=== PATIENT | female | born 1985 | race Caucasian/White ===

== ENCOUNTER 2022-10-26 14:54 | Emergency (ER) | payer BC, SELFPAY ==
[2022-10-26] VITALS (8 sets, daily range): BP systolic 133–154; BP diastolic 95–103; PULSE 101–140; RESP 20; TEMP 36.4; O2SAT 97–100; BMI 20.9
--- NOTE | 2022-10-26 15:28 | ED.GENADULT ---
HPI - General Adult General Time Seen by Provider: 15:28 Date Seen: 10/26/22 Chief complaint: Alcohol/Intoxication Stated complaint: Alcohol Related Problem Time Seen by Provider: 10/26/22 14:57 Source: patient Mode of arrival: ambulatory Limitations: no limitations History of Present Illness HPI narrative: Patient is a 37-year-old female has history of alcohol problem. She reports over the last couple of years since COVID started she has been drinking heavily 1-2 bottles of wine a day. She last drank about 3 in the morning last night. Does not feel she is under the effects of alcohol now but has been shaky, jittery, feels her pulse racing, feels nauseated. She has not had any significant withdrawal from prior time stopping drinking, she went to a last year and stop for a while and did not have this kind of effect after stopping. She has had no fever chills COVID symptoms. She is generally healthy other than her alcohol issue. She is on Adderall for ADHD and Prozac. She has no chest pain, shortness of breath. Related Data Home Medications Medication Instructions Recorded Confirmed dextroamphetamine-amphetamine 40 mg .ROUTE 10/26/22 fluoxetine 20 mg capsule (Prozac) 20 mg PO DAILY 10/26/22 10/26/22 Previous Rx's Medication Instructions Recorded lorazepam 0.5 mg tablet (Ativan) 0.5 mg PO TID PRN #10 tabs 10/26/22 Allergies Allergy/AdvReac Type Severity Reaction Status Date / Time No Known Drug Allergies Allergy Verified 10/26/22 15:10 Review of Systems Status of ROS: Reports: 10 or more systems reviewed and unremarkable except as noted in History and below PFSH PFSH Social History Smoking Status: Current every day smoker How often do you have a drink containing alcohol: 4 or more times a week How many standard drinks containing alcohol do you have on a typical day: 10 or more How often do you have six or more drinks on one occasion: Daily or almost daily AUDIT-C Alcohol total score: 12 Non-prescribed substance use: denies use Exam Narrative: Exam Narrative: Objective: The patient shows elevated pulse at 1:40 a.m. retested about 120 resp rate is normal blood pressure slightly elevated O2 sat 97% on room air HEENT is unremarkable patient is somewhat jittery patient is alert oriented very pleasant, she is scared. No scleral icterus Neck is supple Chest clear Heart rhythm regular heart murmur tachycardic Abdomen benign soft nontender Extremities are no edema neurologic nonfocal, good peripheral perfusion noted Const: Vital Signs, click to edit/add: Vital Signs - 24 hr 10/26/22 15:05 10/26/22 15:26 10/26/22 15:44 Temperature 97.6 F Pulse Rate 110 H Pulse Rate [Left P ulse Oximeter] 140 H Respiratory Rate 20 Blood Pressure Blood Pressure [Ri ght Upper Arm] 154/95 H Pulse Oximetry 97 100 100 Oxygen Delivery Me thod Room Air 10/26/22 16:00 10/26/22 16:01 10/26/22 16:02 Temperature Pulse Rate 101 H 101 H 102 H Pulse Rate [Left P ulse Oximeter] Respiratory Rate Blood Pressure 133/99 H Blood Pressure [Ri ght Upper Arm] Pulse Oximetry 100 100 100 Oxygen Delivery Me thod 10/26/22 16:30 10/26/22 16:32 Temperature Pulse Rate 103 H 101 H Pulse Rate [Left P ulse Oximeter] Respiratory Rate Blood Pressure 136/103 H Blood Pressure [Ri ght Upper Arm] Pulse Oximetry 100 100 Oxygen Delivery Me thod Course Vital Signs Vital signs: Initial Vital Signs Temperature 97.6 F 10/26/22 15:05 Temperature Source Temporal Artery Scan 10/26/22 15:05 Pulse Rate 140 H 10/26/22 15:05 Pulse Rhythm 10/26/22 15:05 Pulse Strength 3+ Normal 10/26/22 15:05 Respiratory Rate 20 10/26/22 15:05 Blood Pressure 154/95 H 10/26/22 15:05 Blood Pressure Mean 114 10/26/22 15:05 Blood Pressure Position Sitting 10/26/22 15:05 Pulse Oximetry 97 10/26/22 15:05 Oxygen Delivery Method 10/26/22 15:05 Vital Signs Temperature 97.6 F 10/26/22 15:05 Pulse Rate 140 H 10/26/22 15:05 Respiratory Rate 20 10/26/22 15:05 Blood Pressure 154/95 H 10/26/22 15:05 Pulse Oximetry 97 10/26/22 15:05 Oxygen Delivery Method 10/26/22 15:05 Temperature 97.6 F 10/26/22 15:05 Pulse Rate 101 H 10/26/22 16:32 Respiratory Rate 20 10/26/22 15:05 Blood Pressure 136/103 H 10/26/22 16:32 Pulse Oximetry 100 10/26/22 16:32 Oxygen Delivery Method 10/26/22 15:05 Medical Decision Making MDM Narrative Medical decision making narrative: Patient is a is a 37 year white female with history of alcohol abuse, likely alcoholism. Possibly mild withdrawal. Could also be an anxiety exacerbation from alcohol. At this point will give Ativan, IV fluid, check labs, check an EKG, social service consult for alcohol recommendation of treatment. Lab Data Labs: Lab Results 10/26/22 10/26/22 10/26/22 Range/Units 15:20 15:20 15:20 WBC 11.42 H (4.50-11.00) K/uL RBC 5.21 H (4.00-5.20) m/uL Hgb 15.8 (12.0-16.0) gm/dL Hct 46.1 (33.0-51.0) % MCV 89 (80-100) fL MCH 30 (26-34) pg MCHC 34 (32-36) gm/dL RDW Coeff of Tori 12.9 (11.5-15.5) % Plt Count 232 (140-440) K/uL Neut % (Auto) 74.9 H (42.0-72.0) % Lymph % (Auto) 19.6 L (20-44) % [place] % (Auto) 4.6 (0.0-11.0) % Eos % (Auto) 0.3 (0.0-7.0) % Baso % (Auto) 0.3 (0.0-3.0) % Neut # (Auto) 8.60 H (1.7-7.0) K/uL Lymph # (Auto) 2.20 (0.90-2.90) K/uL [place] # (Auto) 0.50 (0.00-0.90) K/UL Eos # (Auto) 0.00 (0.00-0.50) K/uL Baso # (Auto) 0.00 (0.00-0.30) K/uL Abs Immat Gran (auto) 0.00 (0.00-0.30) K/uL Imm/Tot Granulo (auto) 0.3 % Sodium 136 (135-149) mmol/L Potassium 3.5 L (3.6-5.1) mmol/L Chloride 100 (96-114) mmol/L Carbon Dioxide 28 (20-32) mmol/L BUN 15 (5-24) mg/dL Creatinine 0.5 (0.5-1.5) mg/dL Estimated Creat Clear 129.91 Estimated GFR 125 ml/min Glucose 89 (60-115) mg/dL Calcium 8.9 (8.4-10.6) mg/dL Total Bilirubin 0.9 (0.1-1.5) mg/dL Direct Bilirubin 0.1 (0.0-0.5) mg/dL AST 35 (12-35) U/L ALT 32 (4-35) U/L Alkaline Phosphatase 91 (40-150) U/L C-Reactive Protein < 0.5 L (0.5-1.0) mg/dL Total Protein 7.5 (6.0-8.3) g/dL Albumin 4.4 (3.3-5.0) g/dL Amylase 76 (18-89) U/L Lipase 128 (23-300) U/L HCG, Qual Negative (Negative) Ethyl Alcohol < 0.01 L (0.01-0.03) % SARS-CoV-2 (PCR) (Negative) Influenza Type A (PCR) (Negative) Influenza Type B (PCR) (Negative) RSV (PCR) (Negative) 10/26/22 Range/Units 15:27 WBC (4.50-11.00) K/uL RBC (4.00-5.20) m/uL Hgb (12.0-16.0) gm/dL Hct (33.0-51.0) % MCV (80-100) fL MCH (26-34) pg MCHC (32-36) gm/dL RDW Coeff of Tori (11.5-15.5) % Plt Count (140-440) K/uL Neut % (Auto) (42.0-72.0) % Lymph % (Auto) (20-44) % [place] % (Auto) (0.0-11.0) % Eos % (Auto) (0.0-7.0) % Baso % (Auto) (0.0-3.0) % Neut # (Auto) (1.7-7.0) K/uL Lymph # (Auto) (0.90-2.90) K/uL [place] # (Auto) (0.00-0.90) K/UL Eos # (Auto) (0.00-0.50) K/uL Baso # (Auto) (0.00-0.30) K/uL Abs Immat Gran (auto) (0.00-0.30) K/uL Imm/Tot Granulo (auto) % Sodium (135-149) mmol/L Potassium (3.6-5.1) mmol/L Chloride (96-114) mmol/L Carbon Dioxide (20-32) mmol/L BUN (5-24) mg/dL Creatinine (0.5-1.5) mg/dL Estimated Creat Clear Estimated GFR ml/min Glucose (60-115) mg/dL Calcium (8.4-10.6) mg/dL Total Bilirubin (0.1-1.5) mg/dL Direct Bilirubin (0.0-0.5) mg/dL AST (12-35) U/L ALT (4-35) U/L Alkaline Phosphatase (40-150) U/L C-Reactive Protein (0.5-1.0) mg/dL Total Protein (6.0-8.3) g/dL Albumin (3.3-5.0) g/dL Amylase (18-89) U/L Lipase (23-300) U/L HCG, Qual (Negative) Ethyl Alcohol (0.01-0.03) % SARS-CoV-2 (PCR) Negative SARS-CoV-2 (Negative) Influenza Type A (PCR) Negative PCR FLU A (Negative) Influenza Type B (PCR) Negative PCR FLU B (Negative) RSV (PCR) Negative PCR RSV (Negative) Discharge Plan Discharge Clinical Impression: Alcohol abuse Patient Disposition: Home w/ Parent or Adult Condition: Improved Additional Instructions: Light activity, off work for 1 week, Ativan as needed p.r.n. for anxiety, follow protocol per social Service to get a Rule 25 assessment as well as can contact [facility] if needed if feeling worse. At this point the patient contracts for safety and feels she is safe to go home, will have her dad stay with her. I do not think she is admitted ball to any inpatient care setting at this time. Return as needed. Activity Level: Light activity Discharge Diet: Regular Prescriptions: New lorazepam [Ativan] 0.5 mg tablet 0.5 mg PO TID PRNQty: 10 0RF No Action fluoxetine [Prozac] 20 mg capsule 20 mg PO DAILY dextroamphetamine-amphetamine [Adderall] 40 mg .ROUTE Stand Alone Forms: [employer] Info Instructions
[2022-10-26] MEDS: 0.9 % SODIUM CHLORIDE 1000 ml 1,000 ML 6000 ML IV (15:35)
[2022-10-26 15:46] LABS: Basophils Percent Auto 0.3 % (0.0-3.0); Eosinophils Percent Auto 0.3 % (0.0-7.0); Hematocrit 46.1 % (33.0-51.0); Hemoglobin* 15.8 gm/dL (12.0-16.0); Immature Granulocytes Pct Auto 0.3 %; Lymphocytes Percent Auto 19.6 % (20-44); Mean Corpuscular HGB Conc 34 gm/dL (32-36); Mean Corpuscular Hemoglobin 30 pg (26-34); Mean Corpuscular Volume 89 fL (80-100); Monocytes Percent Auto 4.6 % (0.0-11.0); Neutrophils Percent Auto 74.9 % (42.0-72.0); Platelet Count* 232 K/uL (140-440); RDW Coefficient of Variation % 12.9 % (11.5-15.5); Red Blood Count 5.21 m/uL (4.00-5.20); White Blood Count* 11.42 K/uL (4.50-11.00)
[2022-10-26] MEDS: LORazepam 2 MG/ML inj 1 MG IVP (15:51)
[2022-10-26 15:52] LABS: Slide Review Reflex No
--- NOTE | 2022-10-26 15:55 | PC.SOCIAL ---
Met with pt. to offer CD and mental health resources. Pt. states she started drinking daily since COVID, when she was furloughed. Pt. states she drinks daily and started having her employer fill out [place] paperwork so she can seek help but she needs a letter from a physician stating she is seeking treatment. Her anxiety and depression has gotten worse. She wants to seek mental health and chemical dependency treatment options. Pt. is tearful and denies being suicidal to me but told the nurse she has thoughts of taking all her prozac medications. Discussed detox as an option, still waiting for pt.'s lab results and discussed the [facility] if pt. has a negative tox screen.
[2022-10-26 15:58] LABS: Chloride* 100 mmol/L (96-114)
[2022-10-26 15:59] LABS: Albumin* 4.4 g/dL (3.3-5.0); Potassium* 3.5 mmol/L (3.6-5.1); Sodium* 136 mmol/L (135-149)
[2022-10-26 16:01] LABS: Amylase* 76 U/L (18-89)
[2022-10-26 16:02] LABS: Alkaline Phosphatase* 91 U/L (40-150); Aspartate Amino Transferase* 35 U/L (12-35); Bilirubin Direct* 0.1 mg/dL (0.0-0.5); Bilirubin Total* 0.9 mg/dL (0.1-1.5); Blood Urea Nitrogen* 15 mg/dL (5-24); Calcium* 8.9 mg/dL (8.4-10.6); Carbon Dioxide* 28 mmol/L (20-32); Creatinine* 0.5 mg/dL (0.5-1.5); Est. Creatinine Clearance* 129.91; Estimated Glomerular Filt Rate 125 ml/min; Glucose* 89 mg/dL (60-115); Lipase* 128 U/L (23-300); Total Protein* 7.5 g/dL (6.0-8.3)
[2022-10-26 16:03] LABS: Alanine Aminotransferase* 32 U/L (4-35)
[2022-10-26 16:04] LABS: Ethanol* < 0.01 % (0.01-0.03)
[2022-10-26 16:05] LABS: C Reactive Protein* < 0.5 mg/dL (0.5-1.0)
[2022-10-26 16:06] LABS: HCG Qualitative Serum* Negative (Negative)
[2022-10-26 16:22] LABS: PCR FLU A Negative PCR FLU A (Negative); PCR FLU B Negative PCR FLU B (Negative); PCR RSV Negative PCR RSV (Negative)
[2022-10-26 16:23] LABS: SARS PCR* Negative SARS-CoV-2 (Negative)
[2022-10-26] MEDS: LORazepam 2 MG/ML inj 0.5 MG IVP (16:27)
--- NOTE | 2022-10-26 16:28 | PC.SOCIAL ---
[facility] has availability to see pt. Updated pt. and she plans to call them at discharge. If not accepted she plans to have her dad stay with her for a few days. Pt. requested a note from the physician to be off work. Pt. tearful about losing her job. The physician wrote a note for pt.
--- NOTE | 2022-10-26 16:47 | PC.NURSE ---
discharge reviewed, pt given prescription for ativan, IV SL removed intact
== END 2022-10-26 16:52 | disposition home or self-care (01) ==
PROVIDERS: Emergency Provider Family Medicine
DX: F10.10 Alcohol abuse, uncomplicated (principal)
CPT/HCPCS: 36415; 80048; 80076; 82077; 82150; 83690; 84703; 85025; 86140; 87502; 87634; 87635; 93005; 94761; 96361; 96374; 96376; 99284; J2060; J7030

== ENCOUNTER 2022-12-30 18:43 | Emergency (ER) | payer BC, SELFPAY ==
[2022-12-30] VITALS (13 sets, daily range): BP systolic 123–139; BP diastolic 89–98; PULSE 95–132; RESP 16–20; TEMP 36.7; O2SAT 95–99; BMI 23.8
[2022-12-30 19:43] LABS: Basophils Absolute Auto 0.04 K/uL (0.00-0.30); Basophils Percent Auto 0.5 % (0.0-3.0); Eosinophils Absolute Auto 0.19 K/uL (0.00-0.50); Eosinophils Percent Auto 2.4 % (0.0-7.0); Hematocrit 48.8 % (33.0-51.0); Hemoglobin* 16.8 gm/dL (12.0-16.0); Immature Granulocytes Abs Auto 0.02 K/uL (0.00-0.30); Immature Granulocytes Pct Auto 0.2 %; Lymphocytes Absolute Auto 3.11 K/uL (0.90-2.90); Lymphocytes Percent Auto 38.8 % (20-44); Mean Corpuscular HGB Conc 34 gm/dL (32-36); Mean Corpuscular Hemoglobin 31 pg (26-34); Mean Corpuscular Volume 90 fL (80-100); Monocytes Percent Auto 5.7 % (0.0-11.0); Neutrophils Percent Auto 52.4 % (42.0-72.0); Platelet Count* 361 K/uL (140-440); RDW Coefficient of Variation % 12.3 % (11.5-15.5); Red Blood Count 5.42 m/uL (4.00-5.20); White Blood Count* 8.02 K/uL (4.50-11.00)
[2022-12-30] MEDS: 0.9 % SODIUM CHLORIDE 1000 ml 1,000 ML IV (19:45)
[2022-12-30] MEDS: SODIUM CHLORIDE 0.9 % (FLUSH) 10 ML SYRINGE 5 ML IVF (19:45)
--- NOTE | 2022-12-30 19:47 | ED.NURSE ---
Patient changed into hospital gown. Belongings searched and secured in med room. IV established, blood drawn and IVF started per orders. Patient remains calm and cooperative. Lights dimmed per patient's request. She states she is going to try and rest. Camera monitoring in place.
[2022-12-30 19:54] LABS: Slide Review Reflex No
[2022-12-30 19:57] LABS: Chloride* 106 mmol/L (96-114); Potassium* 3.5 mmol/L (3.6-5.1); Sodium* 142 mmol/L (135-149)
[2022-12-30 19:58] LABS: Albumin* 4.3 g/dL (3.3-5.0)
[2022-12-30 19:59] LABS: Creatinine* 0.6 mg/dL (0.5-1.5); Est. Creatinine Clearance* 103.51; Estimated Glomerular Filt Rate 120 ml/min
[2022-12-30 20:00] LABS: Blood Urea Nitrogen* 17 mg/dL (5-24); Calcium* 8.6 mg/dL (8.4-10.6); Carbon Dioxide* 23 mmol/L (20-32); Ethanol* 0.21 % (0.01-0.03); Glucose* 128 mg/dL (60-115)
[2022-12-30 20:01] LABS: Alanine Aminotransferase* 40 U/L (4-35); Alkaline Phosphatase* 79 U/L (40-150); Aspartate Amino Transferase* 45 U/L (12-35); Bilirubin Total* 1.5 mg/dL (0.1-1.5); Total Protein* 7.3 g/dL (6.0-8.3)
[2022-12-30 20:02] LABS: Salicylate* < 1.0 mg/dL (1.0-10)
--- NOTE | 2022-12-30 20:02 | ED_ITS ---
HPI - General Adult General Chief complaint: Psychiatric Problem/Disorder Stated complaint: Mental Health Time Seen by Provider: 12/30/22 18:46 Source: patient Mode of arrival: ambulatory Limitations: other History of Present Illness HPI narrative: Patient is a 37-year-old here because of concerns about her own safety. She has a history of alcohol overuse, has been drinking today, says that she has been having suicidal thoughts and did not feel safe at home. She does take medications for depression, denies any form of overdose or other self-harm today. She says that she is under lot of stress, she is a single mom and has a 12-year-old son who is currently staying with her parents as she did not feel she could care for him today. She says she has a number of bills which have piled up, she was furloughed at the beginning of [employer] and used up all her savings. 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 She says she is making mistakes and getting written up at work. It is difficult to tell how much she is drinking as I do not think she is answering that question honestly. Her last drink was right before the police arrived today. She says that she called her dad and asked him to call 911 because she was not feeling safe. She says that she wants to stop drinking, she would like alcohol treatment but does not think that she can pay for this. She also says she cannot afford to take any time off of work. She has been admitted for mental health reasons once but it was many years ago, she estimates at age 18 or 19. She denies use of any other substances. She reports a history of palpitations with withdrawal. She denies history of seizures or hallucinations. Related Data Home Medications Medication Instructions Recorded Confirmed dextroamphetamine-amphetamine 40 mg PO DAILY 10/26/22 12/30/22 fluoxetine 20 mg capsule (Prozac) 20 mg PO DAILY 10/26/22 12/30/22 Previous Rx's Medication Instructions Recorded lorazepam 0.5 mg tablet (Ativan) 0.5 mg PO TID PRN #10 tabs 10/26/22 Allergies Allergy/AdvReac Type Severity Reaction Status Date / Time No Known Drug Allergies Allergy Verified 10/26/22 15:10 Review of Systems Status of ROS: Reports: 10 or more systems reviewed and unremarkable except as noted in History and below [facility] Social History Smoking Status: Current every day smoker What tobacco products do you use: ci garettes Do you use any of these nicotine containing products: None Second hand tobacco smoke exposure: No How often do you have a drink containing alcohol: 4 or more times a week How many standard drinks containing alcohol do you have on a typical day: 10 or more How often do you have six or more drinks on one occasion: Daily or almost daily AUDIT-C Alcohol total score: 12 Non-prescribed substance use: denies use Exam Narrative: Exam Narrative: Vital signs as noted above. In general, an alert, tearful, cooperative young woman. Head: Normocephalic, atraumatic. Eyes: Pupils are equal reactive. Extraocular movements are full. Conjunctivae are normal. ENT: Mucous membranes are moist. Throat is normal. Neck: Supple without lymphadenopathy. Heart: Tachycardic and regular Lungs: Clear bilaterally. No increased work of breathing, crackles or wheezes. Abdomen: Soft and nontender. No organomegaly. Extremities: Well perfused. No edema. No calf tenderness. Pulses intact. Neurologic: Patient is alert and oriented to person and place. Speech is fluent. Face is symmetric. Moves all extremities equally. Affect: Tearful Skin: Warm and dry. Well perfused. Const: Vital Signs, click to edit/add: Vital Signs - 24 hr 12/30/22 18:50 12/30/22 19:42 12/30/22 19:30 Temperature 98.0 F Pulse Rate Pulse Rate [Pulse Oximeter] 132 H 112 H Respiratory Rate 20 16 Blood Pressure Blood Pressure [Ri ght Upper Arm] 137/96 H 130/94 H Pulse Oximetry 95 95 96 Oxygen Delivery Me thod Room Air Room Air 12/30/22 19:44 12/30/22 20:00 12/30/22 20:01 Temperature Pulse Rate 106 H 124 H 108 H Pulse Rate [Pulse Oximeter] Respiratory Rate Blood Pressure 139/98 H Blood Pressure [Ri ght Upper Arm] Pulse Oximetry 96 97 97 Oxygen Delivery Me thod 12/30/22 20:02 12/30/22 20:30 12/30/22 20:31 Temperature Pulse Rate 106 H 98 95 Pulse Rate [Pulse Oximeter] Respiratory Rate Blood Pressure 131/95 H Blood Pressure [Ri ght Upper Arm] Pulse Oximetry 99 99 99 Oxygen Delivery Me thod 12/30/22 20:32 12/30/22 21:00 12/30/22 21:01 Temperature Pulse Rate 100 101 H 96 Pulse Rate [Pulse Oximeter] Respiratory Rate Blood Pressure 131/93 H Blood Pressure [Ri ght Upper Arm] Pulse Oximetry 99 96 97 Oxygen Delivery Me thod 12/30/22 23:24 Temperature Pulse Rate Pulse Rate [Pulse Oximeter] 105 H Respiratory Rate 16 Blood Pressure Blood Pressure [Ri ght Upper Arm] 123/89 Pulse Oximetry 98 Oxygen Delivery Me thod Room Air Documenting provider has reviewed patient's vital signs: yes Course Course Hospital Course: Patient's blood alcohol returned at 0.2. She did have an IV placed, was given a L of saline here. Other labs were fairly unremarkable. Drug screen was positive for THC. White cell count and hemoglobin were 8 and 16.8 respectively. Metabolic panel was unremarkable. LFT show mildly elevated LFTs consistent with her alcohol use. Bilirubin is normal. TSH was normal, test was negative. Tylenol and aspirin levels are negative. It took a couple of hours for her to have the opportunity to speak with the [employer] systems development consultant. By then, she was calmer, and the [employer] systems development consultant reported that she was no longer suicidal. She was interested in going home and felt safe to do so. Apparently, she is already involved with an outpatient alcohol treatment center, but was afraid that since she had resumed drinking they would not let her back. Plan at this time is for outpatient follow-up with a counselor, and to resume with the outpatient treatment program. DEC systems development consultant, Shakila, said that if for some reason the outpatient treatment program that she has previously been attending will not let her back in due to her recurrent alcohol use, she is to call the number on the deck paperwork and they will assist her in getting assessed and into a new outpatient program. If at any time she has recurrent suicidal thoughts, return to the emergency department. Vital Signs Vital signs: Initial Vital Signs Temperature 98.0 F 12/30/22 18:50 Temperature Source Temporal Artery Scan 12/30/22 18:50 Pulse Rate 132 H 12/30/22 18:50 Respiratory Rate 20 12/30/22 18:50 Blood Pressure 137/96 H 12/30/22 18:50 Blood Pressure Mean 109 12/30/22 18:50 Pulse Oximetry 95 12/30/22 18:50 Oxygen Delivery Method 12/30/22 18:50 Vital Signs Temperature 98.0 F 12/30/22 18:50 Pulse Rate 132 H 12/30/22 18:50 Respiratory Rate 20 12/30/22 18:50 Blood Pressure 137/96 H 12/30/22 18:50 Pulse Oximetry 95 12/30/22 18:50 Oxygen Delivery Method 12/30/22 18:50 Temperature 98.0 F 12/30/22 18:50 Pulse Rate 105 H 12/30/22 23:24 Respiratory Rate 16 12/30/22 23:24 Blood Pressure 123/89 12/30/22 23:24 Pulse Oximetry 98 12/30/22 23:24 Oxygen Delivery Method 12/30/22 23:24 Medical Decision Making Lab Data Labs: Lab Results 12/30/22 12/30/22 12/30/22 Range/Units 19:30 19:30 19:30 WBC 8.02 (4.50-11.00) K/uL RBC 5.42 H (4.00-5.20) m/uL Hgb 16.8 H (12.0-16.0) gm/dL Hct 48.8 (33.0-51.0) % MCV 90 (80-100) fL MCH 31 (26-34) pg MCHC 34 (32-36) gm/dL RDW Coeff of Tori 12.3 (11.5-15.5) % Plt Count 361 (140-440) K/uL Neut % (Auto) 52.4 (42.0-72.0) % Lymph % (Auto) 38.8 (20-44) % [place] % (Auto) 5.7 (0.0-11.0) % Eos % (Auto) 2.4 (0.0-7.0) % Baso % (Auto) 0.5 (0.0-3.0) % Neut # (Auto) 4.20 (1.7-7.0) K/uL Lymph # (Auto) 3.11 H (0.90-2.90) K/uL [place] # (Auto) 0.50 (0.00-0.90) K/UL Eos # (Auto) 0.19 (0.00-0.50) K/uL Baso # (Auto) 0.04 (0.00-0.30) K/uL Sodium 142 (135-149) mmol/L Potassium 3.5 L (3.6-5.1) mmol/L Chloride 106 (96-114) mmol/L Carbon Dioxide 23 (20-32) mmol/L BUN 17 (5-24) mg/dL Creatinine 0.6 (0.5-1.5) mg/dL Estimated Creat Clear 103.51 Estimated GFR 120 ml/min Glucose 128 H (60-115) mg/dL Calcium 8.6 (8.4-10.6) mg/dL Total Bilirubin 1.5 (0.1-1.5) mg/dL Direct Bilirubin 0.0 (0.0-0.5) mg/dL AST 45 H (12-35) U/L ALT 40 H (4-35) U/L Alkaline Phosphatase 79 (40-150) U/L Total Protein 7.3 (6.0-8.3) g/dL Albumin 4.3 (3.3-5.0) g/dL TSH (0.270-4.200) uIU/mL HCG, Qual (Negative) Salicylates < 1.0 L (1.0-10) mg/dL Urine Opiates Screen (Negative) Ur Oxycodone Screen (Negative) Urine Methadone Screen (Negative) Ur Propoxyphene Screen (Negative) Ur Barbiturates Screen (Negative) U Tricyclic Antidepress (Negative) Ur Phencyclidine Scrn (Negative) Ur Amphetamines Screen (Negative) U Methamphetamines Scrn (Negative) U Benzodiazepines Scrn (Negative) Urine Cocaine Screen (Negative) U Marijuana (THC) Screen (Negative) Ur Drug Screen Comment Ethyl Alcohol 0.21 H (0.01-0.03) % SARS-CoV-2 (PCR) (Negative) 12/30/22 12/30/22 12/30/22 Range/Units 19:30 19:30 19:55 WBC (4.50-11.00) K/uL RBC (4.00-5.20) m/uL Hgb (12.0-16.0) gm/dL Hct (33.0-51.0) % MCV (80-100) fL MCH (26-34) pg MCHC (32-36) gm/dL RDW Coeff of Tori (11.5-15.5) % Plt Count (140-440) K/uL Neut % (Auto) (42.0-72.0) % Lymph % (Auto) (20-44) % [place] % (Auto) (0.0-11.0) % Eos % (Auto) (0.0-7.0) % Baso % (Auto) (0.0-3.0) % Neut # (Auto) (1.7-7.0) K/uL Lymph # (Auto) (0.90-2.90) K/uL [place] # (Auto) (0.00-0.90) K/UL Eos # (Auto) (0.00-0.50) K/uL Baso # (Auto) (0.00-0.30) K/uL Sodium (135-149) mmol/L Potassium (3.6-5.1) mmol/L Chloride (96-114) mmol/L Carbon Dioxide (20-32) mmol/L BUN (5-24) mg/dL Creatinine (0.5-1.5) mg/dL Estimated Creat Clear Estimated GFR ml/min Glucose (60-115) mg/dL Calcium (8.4-10.6) mg/dL Total Bilirubin (0.1-1.5) mg/dL Direct Bilirubin (0.0-0.5) mg/dL AST (12-35) U/L ALT (4-35) U/L Alkaline Phosphatase (40-150) U/L Total Protein (6.0-8.3) g/dL Albumin (3.3-5.0) g/dL TSH 1.470 (0.270-4.200) uIU/mL HCG, Qual Negative (Negative) Salicylates (1.0-10) mg/dL Urine Opiates Screen (Negative) Ur Oxycodone Screen (Negative) Urine Methadone Screen (Negative) Ur Propoxyphene Screen (Negative) Ur Barbiturates Screen (Negative) U Tricyclic Antidepress (Negative) Ur Phencyclidine Scrn (Negative) Ur Amphetamines Screen (Negative) U Methamphetamines Scrn (Negative) U Benzodiazepines Scrn (Negative) Urine Cocaine Screen (Negative) U Marijuana (THC) Screen (Negative) Ur Drug Screen Comment Ethyl Alcohol (0.01-0.03) % SARS-CoV-2 (PCR) Negative SARS-CoV-2 (Negative) 12/30/22 Range/Units 19:55 WBC (4.50-11.00) K/uL RBC (4.00-5.20) m/uL Hgb (12.0-16.0) gm/dL Hct (33.0-51.0) % MCV (80-100) fL MCH (26-34) pg MCHC (32-36) gm/dL RDW Coeff of Tori (11.5-15.5) % Plt Count (140-440) K/uL Neut % (Auto) (42.0-72.0) % Lymph % (Auto) (20-44) % [place] % (Auto) (0.0-11.0) % Eos % (Auto) (0.0-7.0) % Baso % (Auto) (0.0-3.0) % Neut # (Auto) (1.7-7.0) K/uL Lymph # (Auto) (0.90-2.90) K/uL [place] # (Auto) (0.00-0.90) K/UL Eos # (Auto) (0.00-0.50) K/uL Baso # (Auto) (0.00-0.30) K/uL Sodium (135-149) mmol/L Potassium (3.6-5.1) mmol/L Chloride (96-114) mmol/L Carbon Dioxide (20-32) mmol/L BUN (5-24) mg/dL Creatinine (0.5-1.5) mg/dL Estimated Creat Clear Estimated GFR ml/min Glucose (60-115) mg/dL Calcium (8.4-10.6) mg/dL Total Bilirubin (0.1-1.5) mg/dL Direct Bilirubin (0.0-0.5) mg/dL AST (12-35) U/L ALT (4-35) U/L Alkaline Phosphatase (40-150) U/L Total Protein (6.0-8.3) g/dL Albumin (3.3-5.0) g/dL TSH (0.270-4.200) uIU/mL HCG, Qual (Negative) Salicylates (1.0-10) mg/dL Urine Opiates Screen Negative (Negative) Ur Oxycodone Screen Negative (Negative) Urine Methadone Screen Negative (Negative) Ur Propoxyphene Screen Negative (Negative) Ur Barbiturates Screen Negative (Negative) U Tricyclic Antidepress Negative (Negative) Ur Phencyclidine Scrn Negative (Negative) Ur Amphetamines Screen Negative (Negative) U Methamphetamines Scrn Negative (Negative) U Benzodiazepines Scrn Negative (Negative) Urine Cocaine Screen Negative (Negative) U Marijuana (THC) Screen POSITIVE A* (Negative) Ur Drug Screen Comment See Note Ethyl Alcohol (0.01-0.03) % SARS-CoV-2 (PCR) (Negative) Discharge Plan Discharge Clinical Impression: Alcohol abuse, Anxiety Patient Disposition: Home, Self-Care Condition: Improved Instructions: Alcohol Use Disorder (ED) Additional Instructions: Follow-up for outpatient alcohol treatment and counseling as discussed with the [employer] systems development consultant. Return at any time if you have return of suicidal thoughts or need other assistance. Prescriptions: No Action fluoxetine [Prozac] 20 mg capsule 20 mg PO DAILY dextroamphetamine-amphetamine [Adderall] 40 mg PO DAILY lorazepam [Ativan] 0.5 mg tablet 0.5 mg PO TID PRNQty: 10 0RF Follow Up/Referrals: Provider,Not a Local [Primary Care Provider] - Stand Alone Forms: [employer] Info Instructions
--- NOTE | 2022-12-30 20:05 | ED.NURSE ---
Patient ambulated to the restroom without difficulty. Provided urine sample. Back to bed. No further needs at this time.
[2022-12-30 20:15] LABS: Amphetamine Screen Urine Negative (Negative); Barbiturate Screen Urine Negative (Negative); Benzodiazepines Screen Urine Negative (Negative); Cocaine Screen Urine Negative (Negative); Methadone Screen Urine Negative (Negative); Methamphetamines Screen Urine Negative (Negative); Opiate Screen Urine Negative (Negative); Oxycodone Screen Urine Negative (Negative); Phencyclidine Screen Urine Negative (Negative); Tricyclic Antidepressant Urine Negative (Negative)
[2022-12-30 20:24] LABS: Cannabinoid Screen Urine POSITIVE (Negative)
[2022-12-30 20:25] LABS: SARS PCR* Negative SARS-CoV-2 (Negative)
[2022-12-30 20:25] LABS: HCG Qualitative* Negative (Negative)
--- NOTE | 2022-12-30 21:20 | ED.NURSE ---
[facility]ARPREET will assess patient at approximately 2300. Patient updated with plan of care.
--- NOTE | 2022-12-30 22:20 | ED.NURSE ---
DEC talking with patient.
--- NOTE | 2022-12-30 23:36 | ED.NURSE ---
Patient provided with [facility] paperwork, including safety plan. DAYRON signed and faxed back to [facility]. Patient provided with ED discharge instructions. IV discontinued without complication. Patient provided with all of her belongings. Awaiting on her father to come and pick her up.
== END 2022-12-30 23:51 | disposition home or self-care (01) ==
PROVIDERS: Emergency Provider Emergency Medicine
DX: F10.10 Alcohol abuse, uncomplicated (principal); F41.9 Anxiety disorder, unspecified
CPT/HCPCS: 36415; 80048; 80076; 80179; 80306; 82077; 84443; 84703; 85025; 87635; 93005; 94761; 99284; J7030

== ENCOUNTER 2023-03-13 13:48 | Emergency (ER) | payer BC, SELFPAY ==
[2023-03-13 13:56] VITALS: BP 147/105; PULSE 141; RESP 20; TEMP 36.1; O2SAT 98; BMI 23.0
--- NOTE | 2023-03-13 14:01 | ED.ALCOHOL ---
HPI - Alcohol General Time Seen by Provider: 14:01 Date Seen: 03/13/23 Chief Complaint: Alcohol/Intoxication Stated Complaint: Relapsed recently, Scared she might be withdrawing Time Seen by Provider: 03/13/23 13:52 Source: patient, RN notes reviewed and old records reviewed Mode of arrival: ambulatory Limitations: no limitations History of Present Illness HPI narrative: Alicia is a 38-year-old female coming in with concern of possible alcohol withdrawal. Alcohol has reportedly been a problem with her for 2+ years. She states she can not tell how many time she stopped and started. She goes through a pattern of binge drinking more per her report. She did complete an outpatient alcohol treatment program in November, has been drinking on and off since discharge. She was in December for mental health an alcohol-related issues. Have reviewed that ED visit. She is feeling anxious, is worried that she could have a alcohol withdrawal seizure. She has never had 1 before. She states she pretty much drank all day yesterday, was throwing up with this yesterday. She does not remember the last time she threw up. She believes her last drink was around 3:00 a.m. when asked if she would like to go to detox, she states she does not think she can. She is hoping to go to work tomorrow. She states she just took a leave of absence and really can not afford to be off work. We discussed that she probably needs to get back into a treatment situation, she plans on working on this. She denies any suicidal ideation at this time. MD complaint: alcohol withdrawal and alcohol dependence Last drink: hours (ago) Chronic alcohol use: Yes Previous visits for alcohol intoxication: Yes Recent trauma: No Related Data Home Medications Medication Instructions Recorded Confirmed dextroamphetamine-amphetamine 40 mg PO DAILY 10/26/22 12/30/22 fluoxetine 20 mg capsule (Prozac) 20 mg PO DAILY 10/26/22 12/30/22 Previous Rx's Medication Instructions Recorded lorazepam 0.5 mg tablet (Ativan) 0.5 mg PO TID PRN #10 tabs 10/26/22 hydroxyzine pamoate 25 mg capsule 25 mg PO QID PRN #20 caps 03/13/23 Allergies Allergy/AdvReac Type Severity Reaction Status Date / Time No Known Drug Allergies Allergy Verified 10/26/22 15:10 Review of Systems Status of ROS Reports: 6 or more systems reviewed and unremarkable except as noted in History and below [facility] Social History Smoking Status: Current every day smoker What tobacco products do you use: cigarettes Do you use any of these nicotine containing products: None Second hand tobacco smoke exposure: No How often do you have a drink containing alcohol: 4 or more times a week How many standard drinks containing alcohol do you have on a typical day: 10 or more How often do you have six or more drinks on one occasion: Daily or almost daily AUDIT-C Alcohol total score: 12 Non-prescribed substance use: denies use service: No Exam Const: Vital Signs, click to edit/add: Vital Signs - 24 hr 03/13/23 13:56 03/13/23 14:21 03/13/23 14:31 Temperature 97.0 F L Pulse Rate [Pulse Oximeter] 141 H 107 H Respiratory Rate 20 Blood Pressure [Le ft Upper Arm] 147/105 H 130/85 Pulse Oximetry 98 98 Oxygen Delivery Me thod Room Air 03/13/23 15:25 Temperature Pulse Rate [Pulse Oximeter] 91 Respiratory Rate Blood Pressure [Le ft Upper Arm] 131/87 Pulse Oximetry Oxygen Delivery Me thod Patient is tearful, appears anxious. When I am talking to her heart rate is down into the 1-teen range. Documenting provider has reviewed patient's vital signs: yes Common normals: no apparent distress, average body habitus, oriented x3, no limitations, healthy appearing and alert General appearance: cooperative, comfortable, well kempt, well developed and anxious Nutritional appearance: thin HENMT: Common normals: normocephalic, head/scalp atraumatic and hearing grossly normal bilaterally Head and scalp: normocephalic and atraumatic Eye: Common normals: PERRL, EOMs intact bilaterally, conjunctivae normal and no scleral icterus Conjunctiva: conjunctiva(e) normal Pupil: PERRL Neck & C-Spine: Common normals: full ROM, no lymphadenopathy and supple Resp: Common normals: normal respiratory effort, no retractions, no use of accessory muscles and clear to auscultation bilaterally Effort & inspection: able to speak in complete sentences Auscultation: clear to auscultation bilaterally Cardio: Common normals: regular rhythm, S1 normal heart sound, S2 normal heart sound, no gallops, no clicks and no murmurs Rate: tachycardic Rhythm: regular rhythm Heart sounds: S1 normal and S2 normal GI: Common normals: Normal to inspection, nondistended, normoactive bowel sounds present, soft to palpation, non-tender and no masses Palpation: soft Neuro: Common normals: oriented x3, moves all extremities and no focal motor deficits Sensorium/orientation: alert Other: Note no tremors. Psych: Common normals: cooperative, speech normal and denies suicidal ideation Appearance: well kempt Activity/motor behavior: appropriate eye contact Speech: normal speech Mood and affect: tearful Course Course Hospital Course: Have reviewed with patient that we will initiate IV fluids and 4 mg IV Zofran. She states there is no chance for as she is currently menstruating. We will see how the IV fluids affect her pulse rate. Have discussed medication management of alcohol withdrawal. She is likely to go home, did drive herself here, thus benzodiazepines really are not an option unless we are starting to see trans towards more severe withdrawal. Some of her affect certainly could be anxiety driven and dehydration. This time she might be in mild withdrawal will continue to monitor her here closely, initiate fluids as stated. Will get a full complement of labs. She is declining detox at this point. Reevaluation(s) Reevaluation #1: Patient is checked on, she states she is feeling better. Her heart rate has come down, her blood pressures come down. She is still tearful, states she is so upset with herself. Tried to reassure her. She needs to finish her 2nd L of fluids. Plan will be to discharge to home. Reviewed that her labs overall are looking good, this very minimal elevation in AST and ALT. Time: 15:46 Reevaluation #2: Patient is feeling much better, vitals are improved, no tachycardia. Believe the tachycardia is likely a result of dehydration as has improved with IV fluids. Time: 17:01 Vital Signs Vital signs: Initial Vital Signs Temperature 97.0 F L 03/13/23 13:56 Temperature Source Temporal Artery Scan 03/13/23 13:56 Pulse Rate 141 H 03/13/23 13:56 Pulse Rhythm Regular 03/13/23 13:56 Respiratory Rate 20 03/13/23 13:56 Blood Pressure 147/105 H 03/13/23 13:56 Blood Pressure Mean 119 H 03/13/23 13:56 Pulse Oximetry 98 03/13/23 13:56 Oxygen Delivery Method Room Air 03/13/23 13:56 Vital Signs Temperature 97.0 F L 03/13/23 13:56 Pulse Rate 141 H 03/13/23 13:56 Respiratory Rate 20 03/13/23 13:56 Blood Pressure 147/105 H 03/13/23 13:56 Pulse Oximetry 98 03/13/23 13:56 Oxygen Delivery Method Room Air 03/13/23 13:56 Temperature 97.0 F L 03/13/23 13:56 Pulse Rate 91 03/13/23 15:25 Respiratory Rate 20 03/13/23 13:56 Blood Pressure 131/87 03/13/23 15:25 Pulse Oximetry 98 03/13/23 14:21 Oxygen Delivery Method Room Air 03/13/23 13:56 MDM - Alcohol Lab Data Attestation: I reviewed the patient's lab results. Labs: Lab Results 03/13/23 Range/Units 14:10 WBC 10.55 (4.50-11.00) K/uL RBC 5.24 H (4.00-5.20) m/uL Hgb 16.0 (12.0-16.0) gm/dL Hct 46.9 (33.0-51.0) % MCV 90 (80-100) fL MCH 31 (26-34) pg MCHC 34 (32-36) gm/dL RDW Coeff of Tori 13.2 (11.5-15.5) % Plt Count 319 (140-440) K/uL Neut % (Auto) 74.9 H (42.0-72.0) % Lymph % (Auto) 18.3 L (20-44) % [place] % (Auto) 5.1 (0.0-11.0) % Eos % (Auto) 0.8 (0.0-7.0) % Baso % (Auto) 0.6 (0.0-3.0) % Neut # (Auto) 7.90 H (1.7-7.0) K/uL Lymph # (Auto) 1.90 (0.90-2.90) K/uL [place] # (Auto) 0.50 (0.00-0.90) K/UL Eos # (Auto) 0.08 (0.00-0.50) K/uL Baso # (Auto) 0.06 (0.00-0.30) K/uL Sodium 131 L (135-149) mmol/L Potassium 3.8 (3.6-5.1) mmol/L Chloride 97 (96-114) mmol/L Carbon Dioxide 23 (20-32) mmol/L BUN 15 (5-24) mg/dL Creatinine 0.6 (0.5-1.5) mg/dL Estimated Creat Clear 107.23 Estimated GFR 119 ml/min Glucose 97 (60-115) mg/dL Lactate 3.2 H (0.5-1.9) mmol/L Calcium 8.6 (8.4-10.6) mg/dL Magnesium 1.5 (1.5-2.6) mg/dL Total Bilirubin 1.1 (0.1-1.5) mg/dL AST 43 H (12-35) U/L ALT 36 H (4-35) U/L Alkaline Phosphatase 74 (40-150) U/L Total Protein 7.8 (6.0-8.3) g/dL Albumin 4.5 (3.3-5.0) g/dL Lipase 75 (23-300) U/L HCG, Qual Negative (Negative) Ethyl Alcohol < 0.01 L (0.01-0.03) % ECG Data Attestation: I personally reviewed and interpreted this ECG as follows: (Sinus tachycardia, 118 beats per minute. Some artifact. QT corrected 472 milliseconds.) ECG interpretation date: 03/13/23 ECG interpretation time: 14:30 Prior ECG tracings: not available for review Critical Care Time Critical Care Time Critical Care Time: No Discharge Plan Discharge Clinical Impression: Acute dehydration, Anxiety, Alcohol use disorder Patient Disposition: Home, Self-Care Condition: Improved Instructions: Dehydration (ED), Anxiety (ED), Alcohol Use Disorder (ED) Additional Instructions: Can use hydroxyzine as needed for acute anxiety. Need to follow up with your primary provider within the next week. Try to refrain from alcohol use and see if you can get back into some type of treatment. Activity Level: Activity as Tolerated Discharge Diet: Regular Prescriptions: New hydroxyzine pamoate 25 mg capsule 25 mg PO QID PRNQty: 20 0RF No Action fluoxetine [Prozac] 20 mg capsule 20 mg PO DAILY dextroamphetamine-amphetamine [Adderall] 40 mg PO DAILY lorazepam [Ativan] 0.5 mg tablet 0.5 mg PO TID PRNQty: 10 0RF Follow Up/Referrals: Provider,Not a Local [Referring] - Stand Alone Forms: [facility] Info Instructions
[2023-03-13 14:13] LABS: Lactate* 3.2 mmol/L (0.5-1.9)
[2023-03-13] MEDS: 0.9 % SODIUM CHLORIDE 1000 ml 1,000 ML IV (14:15)
[2023-03-13] MEDS: ONDANSETRON 2 MG/ML inj 4 MG IVP (14:15)
[2023-03-13 14:17] LABS: Basophils Absolute Auto 0.06 K/uL (0.00-0.30); Basophils Percent Auto 0.6 % (0.0-3.0); Eosinophils Absolute Auto 0.08 K/uL (0.00-0.50); Eosinophils Percent Auto 0.8 % (0.0-7.0); Hematocrit 46.9 % (33.0-51.0); Immature Granulocytes Abs Auto 0.03 K/uL (0.00-0.30); Immature Granulocytes Pct Auto 0.3 %; Lymphocytes Percent Auto 18.3 % (20-44); Mean Corpuscular HGB Conc 34 gm/dL (32-36); Mean Corpuscular Hemoglobin 31 pg (26-34); Mean Corpuscular Volume 90 fL (80-100); Monocytes Percent Auto 5.1 % (0.0-11.0); Neutrophils Percent Auto 74.9 % (42.0-72.0); Platelet Count* 319 K/uL (140-440); RDW Coefficient of Variation % 13.2 % (11.5-15.5); Red Blood Count 5.24 m/uL (4.00-5.20); White Blood Count* 10.55 K/uL (4.50-11.00)
[2023-03-13 14:20] LABS: Slide Review Reflex No
[2023-03-13 14:21] VITALS: O2SAT 98
[2023-03-13 14:29] LABS: Albumin* 4.5 g/dL (3.3-5.0)
[2023-03-13 14:30] LABS: Chloride* 97 mmol/L (96-114); Potassium* 3.8 mmol/L (3.6-5.1); Sodium* 131 mmol/L (135-149)
[2023-03-13 14:31] VITALS: BP 130/85; PULSE 107
[2023-03-13 14:32] LABS: Alkaline Phosphatase* 74 U/L (40-150); Aspartate Amino Transferase* 43 U/L (12-35); Bilirubin Total* 1.1 mg/dL (0.1-1.5); Blood Urea Nitrogen* 15 mg/dL (5-24); Carbon Dioxide* 23 mmol/L (20-32); Creatinine* 0.6 mg/dL (0.5-1.5); Est. Creatinine Clearance* 107.23; Estimated Glomerular Filt Rate 119 ml/min; Lipase* 75 U/L (23-300); Total Protein* 7.8 g/dL (6.0-8.3)
[2023-03-13 14:33] LABS: Alanine Aminotransferase* 36 U/L (4-35); Calcium* 8.6 mg/dL (8.4-10.6); Glucose* 97 mg/dL (60-115); Magnesium* 1.5 mg/dL (1.5-2.6)
[2023-03-13 14:49] LABS: Ethanol* < 0.01 % (0.01-0.03)
[2023-03-13] MEDS: LACTATED RINGERS 1000 ML 1,000 ML IV (14:56)
[2023-03-13 14:57] LABS: HCG Qualitative Serum* Negative (Negative)
[2023-03-13 15:25] VITALS: BP 131/87; PULSE 91
[2023-03-13 17:07] VITALS: BP 127/86; PULSE 92; TEMP 36.9
== END 2023-03-13 17:18 | disposition home or self-care (01) ==
PROVIDERS: Emergency Provider Family Medicine; PCP Physician Assistant
DX: E86.0 Dehydration (principal); F10.10 Alcohol abuse, uncomplicated; F41.9 Anxiety disorder, unspecified
CPT/HCPCS: 36415; 80053; 82077; 83605; 83690; 83735; 84703; 85025; 93005; 94761; 96374; 99283; 99284; J2405; J7030; J7120